=== PATIENT | male | born 1945 | race Caucasian/White ===

== ENCOUNTER 2018-07-18 13:07 | Emergency (ER) | payer BC, OTHER ==
[~2018-07-18] VITALS: Ht 177.8 cm; Wt 76.2 kg
--- NOTE | 2018-07-18 13:41 | NUR ---
GRECIA BURGER AT BEDSIDE FOR MSE.
[2018-07-18] MEDS ORDERED: CLOTRIMAZOLE/BETAMET DIPROP CREAM 15 GM TUBE TOP SCH (13:45)
--- NOTE | 2018-07-18 14:07 | NUR ---
R FOOT WOUND CLEANSED W/ NS, DRESSED W/ CLEAN 4X4 GAUZE AND WRAPPED W/ ROLL GAUZE.
[2018-07-18 14:08] VITALS: BP 130/72
--- NOTE | 2018-07-18 14:08 | NUR ---
Patient discharged to home in stable conditon. Written and verbal after care instructions given. Patient verbalizes understanding of instructions. ALL BELONGINGS W/ PT. PT SELF-AMBULATED W/O DIFFICULTY.
== END 2018-07-18 14:09 | disposition home or self-care (01) ==
LOC: ER 13:08
DX: L03.115 Cellulitis of right lower limb (principal); E78.5 Hyperlipidemia, unspecified
CPT/HCPCS: A4663